=== PATIENT | female | born 1965 | race Caucasian/White ===

== ENCOUNTER 2021-04-05 05:14 | Day surgery (SDC) | payer OTHER ==
[2021-04-03 16:37] VITALS: BMI 34.3
[2021-04-05 10:21] VITALS: TEMP 97.5
[2021-04-05 13:50] VITALS: BP 133/79; PULSE 64
== END 2021-04-05 11:20 | disposition home or self-care (01) ==
LOC: JASU-ENDO 05:14
PROVIDERS: ATTEND Internal Medicine Gastroenterology
PROC: 0DJD8ZZ Inspection of Lower Intestinal Tract, Via Natural or Artificial Opening Endoscopic (ICD-10-PCS; principal; 2021-04-05 09:00)
DX: Z12.11 Encounter for screening for malignant neoplasm of colon (principal); K64.8 Other hemorrhoids
CPT/HCPCS: 81025